=== PATIENT | female | born 1965 | race African-American/Black ===

== ENCOUNTER 2022-04-13 12:51 | Emergency (ER) | payer MEDICAID, SELFPAY | END 2022-04-13 14:05 | disposition home or self-care (01) | LOC: CSHERS 12:51 | DX: S01.01XA Laceration without foreign body of scalp, initial encounter (principal); W22.8XXA Striking against or struck by other objects, initial encounter | CPT/HCPCS: 12002 ==

== ENCOUNTER 2023-05-24 12:24 | Emergency (ER) | payer MEDICAID, SELFPAY | END 2023-05-24 14:55 | disposition home or self-care (01) | LOC: CSHERS 12:24 | DX: H61.22 Impacted cerumen, left ear (principal); K08.89 Other specified disorders of teeth and supporting structures | CPT/HCPCS: 99282 ==